=== PATIENT | male | born 1975 ===

== ENCOUNTER 2016-09-29 11:38 | Day surgery (SDC) | payer OTHER ==
[~2016-09-29 11:38] MED LIST: DEXAMETHASONE SOD PHOSPHATE 10 MG/ML 1 ML VIAL IV ONE; HYDROmorphone 1 MG/ML 1 ML SYRINGE IVP PRN; LACTATED RINGERS 1,000 ML IV SCH; LIDOCAINE 1% 20 ML VIAL (10MG/ML) FOR IV START INTRADERMA PRN; MIDAZOLAM 2 MG/2 ML VIAL IV PRN; ONDANSETRON 4 MG/2 ML VIAL IVP ONE; SCOPOLAMINE 1.5MG/72HR PATCH TRANSDERM ONE
[2016-09-29] MEDS ORDERED: KETAMINE 10 MG/ML 20 ML VIAL ONE (12:15)
[2016-09-29] MEDS ORDERED: fentaNYL (PF) 50 MCG/ML 2 ML AMP ONE (12:15)
[2016-09-29] MEDS ORDERED: MIDAZOLAM 2 MG/2 ML VIAL ONE (12:15)
[2016-09-29] MEDS ORDERED: PROPOFOL 10 MG/ML 20 ML VIAL IV ONE (12:15)
[2016-09-29] MEDS ORDERED: LIDOCAINE 1% INJ 10MG/ML (20 ML MDV) ONE (12:15)
--- NOTE | 2016-09-29 12:29 | P.GSHP ---
History of Present Illness H&P Date: 09/29/16 Chief Complaint: painful perinala swelling Patient presented with sever perianal pain and history of known hemorrhoids No current bleelding, lightheadedness, nausea or vomting. There is known history of constipation - Review of Systems All systems: negative - Constitutional Constitutional: Denies chills, Denies fever - EENT Eyes: denies blurred vision, denies pain Ears, nose, mouth and throat: Denies headache, Denies sore throat - Cardiovascular Cardiovascular: Denies chest pain, Denies shortness of breath - Respiratory Respiratory: Denies cough, Denies 7 - Gastrointestinal Gastrointestinal: Denies abdominal pain, Denies diarrhea, Denies nausea, Denies vomiting - Genitourinary (Male) Genitourinary: Denies dysuria, Denies hematuria Past Medical History Past Medical History: Hyperlipidemia, Sleep Apnea/CPAP/BIPAP Additional Past Medical History / Comment(s): USES A CPAP OCCASSIONALLY AT HOME History of Any Multi-Drug Resistant Organisms: None Reported Past Surgical History: Back Surgery Additional Past Surgical History / Comment(s): LAMINECTOMY 2011, NUMEROUS PAIN PROCEDURES FOR C-SPINR AREAE, THORACIC AREA, LUMB Past Anesthesia/Blood Transfusion Reactions: No Reported Reaction Past Psychological History: Depression Additional Psychological History / Comment(s): HX DEPRESSION Smoking Status: Current every day smoker Past Alcohol Use History: None Reported Additional Past Alcohol Use History / Comment(s): SMOKES A PACK AND A HALF A DAY Past Drug Use History: None Reported - Past Family History Mother Family Medical History: Diabetes Mellitus Additional Family Medical History / Comment(s): DIVERTICULOSIS Medications and Allergies Home Medications Medication Instructions Recorded Confirmed Type No Known Home Medications [No 09/29/16 09/29/16 History Known Home Medications] Allergies Allergy/AdvReac Type Severity Reaction Status Date / Time gabapentin Allergy Unknown Verified 09/29/16 12:05 Penicillins Allergy Rash/Hives Verified 09/29/16 12:04 Surgical - Exam Vital Signs Temp Pulse Resp BP Pulse Ox 98.0 F 84 16 124/80 94 L 09/29/16 11:58 09/29/16 11:58 09/29/16 11:58 09/29/16 11:58 09/29/16 11:58 - General well developed, well nourished - Eyes PERRL, normal ocular movement, no pale - ENT normal pinna, normal nares - Neck no masses - Respiratory normal expansion, normal respiratory effort - Abdomen Abdomen: soft - Rectum small painful thrombesed external hemorhoidd Assessment and Plan (1) Thrombosed external hemorrhoids Status: Acute Plan: I have recommneded an incision and drainge of the hermorrhoid under anesthesia due to the sever pain. I have expleind the risks nad mile. He understands and is willing to proceed
[2016-09-29] MEDS ORDERED: NA PHOS,M-B/NA PHOS,DI-BA 133 ML ENEMA RECTAL ONE (12:40)
[2016-09-29] MEDS ORDERED: LIDOCAINE 2%-EPI 1:100,000 20 ML VIAL SUBMUCOSAL ONE (13:34)
[2016-09-29 13:53] VITALS: TEMP 97.6
--- NOTE | 2016-09-29 13:56 | P.OP ---
Date of Procedure: 09/29/16 Preoperative Diagnosis: Thrombosed external hemorhoid Postoperative Diagnosis: Thrombosed external hemorrhoid Procedure(s) Performed: Incision and drainage of thrombosed external hemorrhoid Implants: Anesthesia: MAC Surgeon: Anushka Locke Estimated Blood Loss (ml): 3 Pathology: none sent Condition: stable Disposition: PACU Indications for Procedure: Operative Findings: thrombosed external hemorrhoid at the 3 o'clock position Description of Procedure: intake and prone jackknife position appropriate timeout was called appropriate IV sedation was administered. The buttocks were with the help of tape the areas were prepped and draped in usual surgical fashion. Appropriate timeout was called. The trhrombosed external hemorrhoid was grasped with the help of an elisabeth grasper and incision was made with the help of a scalpel deepened through the skin and subcutis tissue with the electrocautery all the clot was removed hemostasis secured with the help of electrocautery. The incision was 2.5 cm long. There were no other thrombosed hemorrhoids. Patient had not consented to a formal hemorrhoidectomy and therefore an incision and drainage was done. Patient tolerated procedure well there were no complications Vaseline dressing was placed patient was extubated taken to recovery room in stable condition. He did have epistaxis during the procedure which was controlled by anesthesia.
[2016-09-29 14:03] VITALS: RESP 16
[2016-09-29] MEDS ORDERED: SODIUM CHLORIDE 0.9% 1,000 ML IV ONE ×2 (14:14)
[2016-09-29 15:12] VITALS: BP 121/69; PULSE 87
== END 2016-09-29 15:18 | disposition home or self-care (01) ==
LOC: OR 11:38
PROVIDERS: ATTEND Surgery
DX: K64.5 Perianal venous thrombosis (principal); E78.5 Hyperlipidemia, unspecified; G47.30 Sleep apnea, unspecified; F32.9 Major depressive disorder, single episode, unspecified; F17.200 Nicotine dependence, unspecified, uncomplicated; Z88.0 Allergy status to penicillin; Z88.8 Allergy status to other drugs, medicaments and biological substances
CPT/HCPCS: 46083; J2250; J1100; J2405; J2001; J3010; J2704